=== PATIENT | male | born 1945 | race Caucasian/White ===

== ENCOUNTER → 2016-07-06 | Day surgery (SDC) | payer OTHER ==
[~2016-07-06] MED LIST: ASPIRIN EC81 M1 PO; CENTRUM SILVER PO; CLARITIN10 M3 PO; CO Q-10150 MG PO; FISH OIL 1,0001 CAP PO; HYDROCHLOROTHIA25 MG PO; LEVOCETIRIZINE D5 MG PO; LIPITOR PO; LIPITOR20 MG PO; LORTAB 5-325 M1 EACH PO; LOTREL 10-20 MG1 CAP PO; LOTREL PO; METFORMIN HCL500 M1 PO; NASONEX17 GM; NORVASC PO; PRILOSEC20 MG PO; TIMOPTIC2.5 ML OP; ZESTRIL2.5 MG PO
--- NOTE | ~2016-07-06 | OR ---
Unit #: [id number] #: [id number] Patient: DEEPALI TRAN [id number] [address] [address] [id number] MR#: [id number] NAME: DEEPALI TRAN ROOM: Date of Procedure: 07/06/2016 Admission Date: 07/06/2016 Surgeon: Vincent Ty M.D. : 1945 Attending Physician: Vincent Ty M.D. Primary Care Physician: Al Santacruz M.D. OPERATIVE REPORT PREOPERATIVE DIAGNOSIS Colorectal cancer screening in an average-risk patient. PROCEDURES PERFORMED Colonoscopy and polypectomy. POSTOPERATIVE DIAGNOSES 1. Single sessile polyp in the proximal descending colon. This was about 6 mm in size and was removed using snare polypectomy. 2. Rest of the examination up to cecum and terminal ileum was normal. The quality of the prep was excellent. RECOMMENDATIONS 1. Repeat colonoscopy in 5 years. 2. Follow up the results of polyp histology. SEDATION USED MAC. DESCRIPTION OF PROCEDURE Following detailed explanation of the potential risks and complications of a colonoscopy, namely perforation, bleeding, and complication related to sedation, the patient was brought to GI lab and laid in the left lateral decubitus position. A digital rectal examination was performed, which was normal. Lubricated tip of the Olympus video colonoscope was inserted through the anus and advanced under direct vision. The scope was advanced past rectosigmoid into descending colon. No diverticula were seen in this area. The scope tip was then navigated all the way up to cecum with visualization of the ileocecal valve and the appendiceal orifice. Preparation was excellent with good visualization and photodocumentation was obtained. Last several inches of the terminal ileum were also visualized after intubation of the ileocecal valve and appeared normal. Successive segments of the colonic mucosa were examined upon withdrawal. A single sessile polyp was noted in the proximal descending colon. This was about 6 mm in size. It was removed using snare polypectomy. The polyp was retrieved and sent for histology. No additional polyps were noted. The patient did not have any diverticulosis nor any hemorrhoids. He tolerated the procedure without any postprocedure complications. Dictated by... Vincent Ty M.D. Unit #: [id number] #: [id number] Patient: DEEPALI TRAN Miguel GUZMAN/john TD: 07/06/2016 21:49 JOB #: [id number] OPERATIVE REPORT Page 1 of 1 X Vincent Ty MD PROCEDURE OPERATIVE NOTE
== END | disposition home or self-care (01) ==
LOC: COPS 06:12
DX: Z12.11 Encounter for screening for malignant neoplasm of colon (principal); D12.4 Benign neoplasm of descending colon; I10 Essential (primary) hypertension; E11.9 Type 2 diabetes mellitus without complications; Z88.0 Allergy status to penicillin; Z88.5 Allergy status to narcotic agent; Z79.82 Long term (current) use of aspirin; Z79.899 Other long term (current) drug therapy; Z90.49 Acquired absence of other specified parts of digestive tract; Z98.41 Cataract extraction status, right eye; Z98.42 Cataract extraction status, left eye
CPT/HCPCS: 82947; 88305